=== PATIENT | female | born 1940 | race Hispanic/Latino ===

== ENCOUNTER 2018-10-23 20:35 | Emergency (ER) | payer MEDICARE ==
--- NOTE | 2018-10-23 22:35 | EDPHYS ---
Physician Documentation [facility] Name: Catherine Chahal Age: 78 yrs Sex: Female : 1940 Arrival Date: 10/23/2018 Time: 20:40 Bed 13 Private MD: Shemar White E ED Physician Brennen Rader HPI: 10/24 02:51 This 78 yrs old Female presents to ER via Ambulatory with complaints of Finger tw4 Injury - turned black. 02:51 The patient or guardian reports swelling. The patient or guardian reports eechymosis. tw4 The complaints affect the palmar aspect of distal phalanx of right little finger. Context: The problem was sustained at home, resulted from an unknown cause. Onset: The symptoms/episode began/occurred yesterday. Modifying factors: The symptoms are alleviated by nothing, the symptoms are aggravated by nothing. Severity of symptoms: At their worst the symptoms were moderate, in the emergency department the symptoms are unchanged. Historical: - Allergies: 10/23 20:50 Codeine; ed1 20:50 Iodine; ed1 20:50 Sulfa (Sulfonamide Antibiotics); ed1 - Home Meds: 20:50 metformin 500 mg Oral tab 1 tab 2 times per day [Active]; amlodipine 10 mg tab 1 tab ed1 once daily [Active]; naproxen 500 mg Oral tab 1 tab 2 times per day [Active]; tramadol 50 mg Oral tab as needed [Active]; - PMHx: 20:50 Diabetes - NIDDM; Hypertension; ed1 - PSHx: 20:50 Knee surgery; cataract Sx; Hysterectomy; Cholecystectomy; Tonsillectomy; breast Sx; ed1 - Immunization history:: Adult Immunizations up to date. - Social history:: Smoking status: Patient/guardian denies using tobacco. - Ebola Screening: : Patient negative for fever greater than or equal to 101.5 degrees Fahrenheit, and additional compatible Ebola Virus Disease symptoms Patient denies exposure to infectious person Patient denies travel to an Ebola-affected area in the 21 days before illness onset No symptoms or risks identified at this time. ROS: 10/24 02:51 Constitutional: Negative for fever, chills, and weight loss, Eyes: Negative for injury, tw4 pain, redness, and discharge, Cardiovascular: Negative for chest pain, palpitations, and edema, Respiratory: Negative for shortness of breath, cough, wheezing, and pleuritic chest pain, Abdomen/GI: Negative for abdominal pain, nausea, vomiting, diarrhea, and constipation. MS/extremity: Positive for ecchymosis, swelling, Negative for injury or acute deformity, abrasion, bite, contusion, decreased range of motion, deformity, erythema, laceration, pain, paresthesias, puncture, rash. Exam: 02:51 Constitutional: This is a well developed, well nourished patient who is awake, alert, tw4 and in no acute distress. Head/Face: Normocephalic, atraumatic. Chest/axilla: Normal chest wall appearance and motion. Nontender with no deformity. No lesions are appreciated. Cardiovascular: Regular rate and rhythm with a normal S1 and S2. No gallops, murmurs, or rubs. Normal PMI, no JVD. No pulse deficits. Respiratory: Lungs have equal breath sounds bilaterally, clear to auscultation and percussion. No rales, rhonchi or wheezes noted. No increased work of breathing, no retractions or nasal flaring. Abdomen/GI: Soft, non-tender, with normal bowel sounds. No distension or tympany. No guarding or rebound. No evidence of tenderness throughout. 02:51 Musculoskeletal/extremity: Extremities: noted in the palmar aspect of distal phalanx of right little finger: ecchymosis, swelling, abrasion, bite, contusion, decreased ROM, deformity, ROM: limited passive range of motion, "trigger finger". Vital Signs: 10/23 20:50 BP 131 / 65; Pulse 81; Resp 18; Temp 97.5(TE); Pulse Ox 96% on R/A; Weight 76.2 kg; ed1 Height 5 ft. 3 in. (160.02 cm); Pain 0/10; 22:15 BP 143 / 70; Pulse 68; Resp 16; Pulse Ox 100% on R/A; jb4 20:50 Body Mass Index 29.76 (76.20 kg, 160.02 cm) ed1 MDM: 21:01 Patient medically screened. tw4 10/24 02:51 Differential diagnosis: contusion, abrasion. Data reviewed: vital signs, nurses notes. tw4 Data interpreted: Pulse oximetry: Interpretation: normal. Counseling: I had a detailed discussion with the patient and/or guardian regarding: the historical points, exam findings, and any diagnostic results supporting the discharge/admit diagnosis, radiology results. Special discussion: I discussed with the patient/guardian in detail that at this point there is no indication for admission to the hospital. It is understood, however, that if the symptoms persist or worsen the patient needs to return immediately for re-evaluation. 10/23 21:39 Order name: Hand Right 2 View XRAY tw4 Administered Medications: No medications were administered Disposition: 10/23/18 22:34 Discharged to Home. Impression: Trigger finger, right little finger. - Condition is Stable. - Discharge Instructions: Trigger Finger. - Medication Reconciliation Form, Thank You Letter, Antibiotic Education, Prescription Opioid Use form. - Follow up: Shemar White MD; When: Upon discharge from the Emergency Department; Reason: If symptoms return, Recheck today's complaints, Continuance of care. - Problem is new. - Symptoms have improved. Signatures: Dispatcher [employer] EDMS Neha De León RN RN ed1 Deyvi Osorio RN RN jb4 Brennen Rader MD MD tw4 Corrections: (The following items were deleted from the chart) 10/23 23:02 22:34 10/23/2018 22:34 Discharged to Home. Impression: Trigger finger, right little jb4 finger. Condition is Stable. Forms are Medication Reconciliation Form, Thank You Letter, Antibiotic Education, Prescription Opioid Use. Follow up: Shemar White; When: Upon discharge from the Emergency Department; Reason: If symptoms return, Recheck today's complaints, Continuance of care. Problem is new. Symptoms have improved. tw4
--- NOTE | 2018-10-23 22:35 | ER ---
Nurse's Notes [facility] Name: Catherine Chahal Age: 78 yrs Sex: Female : 1940 Arrival Date: 10/23/2018 Time: 20:40 Bed 13 Private MD: Shemar White E Diagnosis: Trigger finger, right little finger Presentation: 10/23 20:46 Presenting complaint: Patient states: I don't know what happened I was working with ed1 some scissors then it just started to swell up. Transition of care: patient was not received from another setting of care. Onset of symptoms was October 23, 2018. Risk Assessment: Do you want to hurt yourself or someone else? Patient reports no desire to harm self or others. Initial Sepsis Screen: Does the patient meet any 2 criteria? No. Patient's initial sepsis screen is negative. Does the patient have a suspected source of infection? No. Patient's initial sepsis screen is negative. Care prior to arrival: None. 20:46 Method Of Arrival: Ambulatory ed1 20:46 Acuity: NESTOR 4 ed1 Triage Assessment: 20:50 General: Appears in no apparent distress. Behavior is calm, cooperative. Pain: Denies ed1 pain. Musculoskeletal: Swelling present in right pinky. Injury Description: N/A. Historical: - Allergies: 20:50 Codeine; ed1 20:50 Iodine; ed1 20:50 Sulfa (Sulfonamide Antibiotics); ed1 - Home Meds: 20:50 metformin 500 mg Oral tab 1 tab 2 times per day [Active]; amlodipine 10 mg tab 1 tab ed1 once daily [Active]; naproxen 500 mg Oral tab 1 tab 2 times per day [Active]; tramadol 50 mg Oral tab as needed [Active]; - PMHx: 20:50 Diabetes - NIDDM; Hypertension; ed1 - PSHx: 20:50 Knee surgery; cataract Sx; Hysterectomy; Cholecystectomy; Tonsillectomy; breast Sx; ed1 - Immunization history:: Adult Immunizations up to date. - Social history:: Smoking status: Patient/guardian denies using tobacco. - Ebola Screening: : Patient negative for fever greater than or equal to 101.5 degrees Fahrenheit, and additional compatible Ebola Virus Disease symptoms Patient denies exposure to infectious person Patient denies travel to an Ebola-affected area in the 21 days before illness onset No symptoms or risks identified at this time. Screenin:00 Abuse screen: Denies threats or abuse. Nutritional screening: No deficits noted. jb4 Tuberculosis screening: No symptoms or risk factors identified. Fall Risk None identified. Assessment: 21:00 General: Appears in no apparent distress. comfortable, Behavior is calm, cooperative, jb4 appropriate for age, PT reports swelling and bruising to the right pinky. Denies any form of injury to the area. "It just started swelling and turning black like a bruise.".. Pain: Denies pain. Neuro: Level of Consciousness is awake, alert, obeys commands, Oriented to person, place, time, situation. Cardiovascular: Patient's skin is warm and dry. Respiratory: Airway is patent Respiratory effort is even, unlabored, Respiratory pattern is regular, symmetrical. GI: No signs and/or symptoms were reported involving the gastrointestinal system. : No signs and/or symptoms were reported regarding the genitourinary system. EENT: No signs and/or symptoms were reported regarding the EENT system. Derm: Skin is intact, Skin is pink, warm \\T\\ dry. Musculoskeletal: Circulation, motion, and sensation intact. 22:28 Reassessment: Patient appears in no apparent distress at this time. Patient and/or jb4 family updated on plan of care and expected duration. Pain level reassessed. Patient is alert, oriented x 3, equal unlabored respirations, skin warm/dry/pink. 22:45 Reassessment: Pt discharged home with family, ambulated with steady gate, no IV access jb4 this visit. Vital Signs: 20:50 BP 131 / 65; Pulse 81; Resp 18; Temp 97.5(TE); Pulse Ox 96% on R/A; Weight 76.2 kg; ed1 Height 5 ft. 3 in. (160.02 cm); Pain 0/10; 22:15 BP 143 / 70; Pulse 68; Resp 16; Pulse Ox 100% on R/A; jb4 20:50 Body Mass Index 29.76 (76.20 kg, 160.02 cm) ed1 ED Course: 20:40 Patient arrived in ED. am2 20:40 Shemar White MD is Private Physician. am2 20:46 Triage completed. ed1 20:50 Arm band placed on right wrist. ed1 21:00 Patient has correct armband on for positive identification. Bed in low position. Call jb4 light in reach. Side rails up X 1. Pulse ox on. NIBP on. 21:01 Brennen Rader MD is Attending Physician. tw4 21:05 Deyvi Osorio, RN is Primary Nurse. jb4 22:07 Hand Right 2 View XRAY In Process Unspecified. EDMS 22:33 Shemar White MD is Referral Physician. tw4 22:45 No provider procedures requiring assistance completed. Patient did not have IV access jb4 during this emergency room visit. Administered Medications: No medications were administered Outcome: 22:34 Discharge ordered by MD. tw4 22:45 Discharged to home ambulatory, with family. jb4 22:45 Condition: stable 22:45 Discharge instructions given to patient, family, Instructed on discharge instructions, follow up and referral plans. Demonstrated understanding of instructions, follow-up care. 23:02 Patient left the ED. jb4 Signatures: Dispatcher [employer] EDNeha Snider RN RN ed1 Deyvi Osorio, BRANDON RN jb4 Petty Gonzalez am2 Brennen Rader MD MD tw4
[2018-10-23 23:19] VITALS: TEMP 97.5
[2018-10-23 23:21] VITALS: BP 143/70; O2SAT 100
--- NOTE | 2018-10-24 08:09 | RAD REPORT ---
EXAM DESCRIPTION: RAD - Hand Right 2 View - 10/23/2018 10:12 pm CLINICAL HISTORY: Right hand pain FINDINGS: No fracture or dislocation is seen. A calcification triangular fibrocartilage. Osteoporosis. Mild osteoarthritis involving DIP and PIP edison ints
== END 2018-10-23 23:02 | disposition home or self-care (01) ==
LOC: ER 20:35
DX: M65.351 Trigger finger, right little finger (principal); I10 Essential (primary) hypertension; E11.9 Type 2 diabetes mellitus without complications; Z88.2 Allergy status to sulfonamides; Z88.5 Allergy status to narcotic agent; Z91.048 Other nonmedicinal substance allergy status
CPT/HCPCS: 99283

== ENCOUNTER 2019-08-20 14:18 | Emergency (ER) | payer MEDICARE, OTHER, SELFPAY ==
--- NOTE | 2019-08-20 14:56 | EDPHYS ---
Physician Documentation [facility] Name: Catherine Chahal Age: 78 yrs Sex: Female : 1940 Arrival Date: 08/20/2019 Time: 14:21 Bed 28 Private MD: ED Physician Chelsea Wilburn HPI: 08/19 15:03 This 78 yrs old Female presents to ER via Ambulatory with complaints of Skin snw Sore(s). 15:03 Onset: The symptoms/episode began/occurred suddenly. Associated signs and symptoms: snw Pertinent positives: itching. Modifying factors: The patient symptoms are alleviated by nothing, the patient symptoms are aggravated by nothing. The patient has not experienced similar symptoms in the past. It is unknown whether or not the patient has recently seen a physician. negative for fever, malaise. Historical: - Allergies: 15:00 Codeine; ls4 15:00 Iodine; ls4 15:00 Sulfa (Sulfonamide Antibiotics); ls4 - PMHx: 15:00 Diabetes - NIDDM; Hypertension; ls4 - PSHx: 15:00 Knee surgery; cataract Sx; Hysterectomy; Cholecystectomy; Tonsillectomy; breast Sx; ls4 - Immunization history:: Adult Immunizations up to date, Pneumococcal vaccine is up to date, Flu vaccine is up to date. - Social history:: Smoking status: Patient denies any tobacco usage or history of. ROS: 15:02 Constitutional: Negative for fever, chills, and weight loss, Eyes: Negative for injury, snw pain, redness, and discharge, ENT: Negative for injury, pain, and discharge, Neck: Negative for injury, pain, and swelling, Cardiovascular: Negative for chest pain, palpitations, and edema, Respiratory: Negative for shortness of breath, cough, wheezing, and pleuritic chest pain, Abdomen/GI: Negative for abdominal pain, nausea, vomiting, diarrhea, and constipation, Back: Negative for injury and pain, : Negative for injury, bleeding, discharge, and swelling, MS/Extremity: Negative for injury and deformity, Neuro: Negative for headache, weakness, numbness, tingling, and seizure, Psych: Negative for depression, anxiety, suicide ideation, homicidal ideation, and hallucinations. 15:02 Skin: Positive for cellulitis, of the left lower quadrant, itching. Exam: 15:01 Constitutional: This is a well developed, well nourished patient who is awake, alert, snw and in no acute distress. Head/Face: Normocephalic, atraumatic. Eyes: Pupils equal round and reactive to light, extra-ocular motions intact. Lids and lashes normal. Conjunctiva and sclera are non-icteric and not injected. Cornea within normal limits. Periorbital areas with no swelling, redness, or edema. ENT: Nares patent. No nasal discharge, no septal abnormalities noted. Tympanic membranes are normal and external auditory canals are clear. Oropharynx with no redness, swelling, or masses, exudates, or evidence of obstruction, uvula midline. Mucous membranes moist. Neck: Trachea midline, no thyromegaly or masses palpated, and no cervical lymphadenopathy. Supple, full range of motion without nuchal rigidity, or vertebral point tenderness. No Meningismus. Chest/axilla: Normal chest wall appearance and motion. Nontender with no deformity. No lesions are appreciated. Cardiovascular: Regular rate and rhythm with a normal S1 and S2. No gallops, murmurs, or rubs. Normal PMI, no JVD. No pulse deficits. Respiratory: Lungs have equal breath sounds bilaterally, clear to auscultation and percussion. No rales, rhonchi or wheezes noted. No increased work of breathing, no retractions or nasal flaring. Abdomen/GI: Soft, non-tender, with normal bowel sounds. No distension or tympany. No guarding or rebound. No evidence of tenderness throughout. Back: No spinal tenderness. No costovertebral tenderness. Full range of motion. MS/ Extremity: Pulses equal, no cyanosis. Neurovascular intact. Full, normal range of motion. Neuro: Awake and alert, GCS 15, oriented to person, place, time, and situation. Cranial nerves II-XII grossly intact. Motor strength 5/5 in all extremities. Sensory grossly intact. Cerebellar exam normal. Normal gait. Psych: Awake, alert, with orientation to person, place and time. Behavior, mood, and affect are within normal limits. 15:01 Skin: Appearance: normal except for affected area, abscess, that is small, of the left lower quadrant, with fluctuance, cellulitis, that is mild, well demarcated, on the left lower quadrant. Vital Signs: 14:24 BP 154 / 68; Pulse 93; Resp 16 S; Temp 98(TE); Pulse Ox 98% on R/A; Weight 74.84 kg ca1 (R); Height 5 ft. 3 in. (160.02 cm) (R); 14:24 Body Mass Index 29.23 (74.84 kg, 160.02 cm) ca1 MDM: 14:29 Patient medically screened. snw 14:56 Data reviewed: vital signs, nurses notes. Data interpreted: Pulse oximetry: on room air snw is 98 %. Interpretation: normal. Counseling: I had a detailed discussion with the patient and/or guardian regarding: the historical points, exam findings, and any diagnostic results supporting the discharge/admit diagnosis, the presence of at least one elevated blood pressure reading (>120/80) during this emergency department visit, the need for outpatient follow up, to return to the emergency department if symptoms worsen or persist or if there are any questions or concerns that arise at home. Special discussion: I have referred the patient to see his PCP for further evaluation of high blood pressure. I discussed in detail with the patient the higher chance of wound infection based on his presenting history. Based on the history and exam findings, there is no indication for further emergent testing or inpatient evaluation. I discussed with the patient/guardian the need to see the primary care provider for further evaluation of the symptoms. Administered Medications: No medications were administered Disposition: 08/20/19 14:55 Discharged to Home. Impression: Cutaneous abscess of other sites, Cellulitis, unspecified. - Condition is Stable. - Discharge Instructions: Cellulitis, Adult, Skin Abscess, [id number]. - Prescriptions for Bactroban 2 % Topical Ointment - Apply to affected area 1 application by TOPICAL route every 12 hours; 15 gram. Doxycycline Hyclate 100 mg Oral Tablet - take 1 tablet by ORAL route every 12 hours; 20 tablet. - Medication Reconciliation Form, Thank You Letter, Antibiotic Education, Prescription Opioid Use form. - Follow up: Emergency Department; When: As needed; Reason: Worsening of condition. Follow up: Private Physician; When: 2 - 3 days; Reason: Recheck today's complaints, Continuance of care, Re-evaluation by your physician. Addendum: 08/26/2019 01:28 Co-signature as Attending Physician, Chelsea castillo a2 Signatures: Samantha Parish, JANITORIAL SERVICES SUPERVISOR-C JANITORIAL SERVICES SUPERVISOR-Csnw Chelsea Wilburn MD MD ma2 Carmen Chavarria, RN RN ls4 Leilani Salmeron RN RN ca1 Corrections: (The following items were deleted from the chart) 08/19 15:10 14:55 08/20/2019 14:55 Discharged to Home. Impression: Cutaneous abscess of other ls4 sites; Cellulitis, unspecified. Condition is Stable. Forms are Medication Reconciliation Form, Thank You Letter, Antibiotic Education, Prescription Opioid Use. Follow up: Emergency Department; When: As needed; Reason: Worsening of condition. Follow up: Private Physician; When: 2 - 3 days; Reason: Recheck today's complaints, Continuance of care, Re-evaluation by your physician. snw
--- NOTE | 2019-08-20 14:56 | ER ---
Nurse's Notes [facility] Name: Catherine Chahal Age: 78 yrs Sex: Female : 1940 Arrival Date: 08/20/2019 Time: 14:21 Bed 28 Private MD: Diagnosis: Cutaneous abscess of other sites;Cellulitis, unspecified Presentation: 08/19 14:24 Chief complaint: Patient states: Reddish lump on the L lower abdomen started today. ca1 Denies pain, reports itchiness on the area. Coronavirus screen: The patient has NOT traveled to [place] in the past 14 days. The patient has NOT had contact with known and/or suspected case of Coronavirus. Ebola Screen: Patient negative for fever greater than or equal to 101.5 degrees Fahrenheit, and additional compatible Ebola Virus Disease symptoms Patient denies exposure to infectious person. Patient denies travel to an Ebola-affected area in the 21 days before illness onset. No symptoms or risks identified at this time. Initial Sepsis Screen: Does the patient meet any 2 criteria? No. Patient's initial sepsis screen is negative. Does the patient have a suspected source of infection? No. Patient's initial sepsis screen is negative. Risk Assessment: Do you want to hurt yourself or someone else? Patient reports no desire to harm self or others. Onset of symptoms was August 20, 2019. 14:24 Method Of Arrival: Ambulatory ca1 14:24 Acuity: NESTOR 4 ca1 Triage Assessment: 14:42 General: Appears in no apparent distress. Behavior is calm, cooperative. Pain: Denies ls4 pain. Neuro: No deficits noted. Cardiovascular: No deficits noted. Respiratory: No deficits noted. GI: No deficits noted. : No deficits noted. Musculoskeletal: No deficits noted. 14:52 Derm: Abscess located on left lower quadrant Reports itching, Denies burning, pain, ls4 peeling, tingling. Historical: - Allergies: 15:00 Codeine; ls4 15:00 Iodine; ls4 15:00 Sulfa (Sulfonamide Antibiotics); ls4 - PMHx: 15:00 Diabetes - NIDDM; Hypertension; ls4 - PSHx: 15:00 Knee surgery; cataract Sx; Hysterectomy; Cholecystectomy; Tonsillectomy; breast Sx; ls4 - Immunization history:: Adult Immunizations up to date, Pneumococcal vaccine is up to date, Flu vaccine is up to date. - Social history:: Smoking status: Patient denies any tobacco usage or history of. Screenin:57 Abuse screen: Denies threats or abuse. Denies injuries from another. Nutritional ls4 screening: No deficits noted. Tuberculosis screening: No symptoms or risk factors identified. Fall Risk None identified. Assessment: 14:53 General: SEE TRIAGE NOTE. ls4 Vital Signs: 14:24 BP 154 / 68; Pulse 93; Resp 16 S; Temp 98(TE); Pulse Ox 98% on R/A; Weight 74.84 kg ca1 (R); Height 5 ft. 3 in. (160.02 cm) (R); 14:24 Body Mass Index 29.23 (74.84 kg, 160.02 cm) ca1 ED Course: 14:21 Patient arrived in ED. mr 14:24 Arm band placed on right wrist. ca1 14:27 Triage completed. ca1 14:29 Samantha Parish FNP-C is PHCP. snw 14:29 Chelsea Wilburn MD is Attending Physician. snw 14:40 Carmen Chavarria, RN is Primary Nurse. ls4 14:57 Patient has correct armband on for positive identification. Bed in low position. Call ls4 light in reach. Side rails up X 1. Pulse ox on. NIBP on. Verbal reassurance given. 14:57 No provider procedures requiring assistance completed. Patient did not have IV access ls4 during this emergency room visit. Administered Medications: No medications were administered Outcome: 14:55 Discharge ordered by . snw 15:00 Discharged to home ambulatory. ls4 15:00 Condition: stable 15:00 Discharge instructions given to patient, Instructed on discharge instructions, follow up and referral plans. medication usage, safety practices, wound care, Demonstrated understanding of instructions, follow-up care, medications. 15:10 Patient left the ED. ls4 Signatures: Samantha Parish FNP-C FNP-Adam Catherine Marin Carmen Chavarria, RN RN ls4 Leilani Salmeron RN RN ca1 Corrections: (The following items were deleted from the chart) 14:53 14:42 Derm: No deficits noted. ls4 ls4
[2019-08-20 16:35] VITALS: BP 154/68; TEMP 98; O2SAT 98
== END 2019-08-20 15:10 | disposition home or self-care (01) ==
LOC: ER 14:18
DX: L03.311 Cellulitis of abdominal wall (principal); I10 Essential (primary) hypertension; Z88.2 Allergy status to sulfonamides; Z88.5 Allergy status to narcotic agent; Z91.048 Other nonmedicinal substance allergy status
CPT/HCPCS: 99283

== ENCOUNTER 2020-06-09 10:21 | Day surgery (SDC) | payer OTHER ==
--- NOTE | 2020-06-05 13:33 | RAD REPORT ---
EXAM DESCRIPTION: Alberto Pa And Lat (2 Views)06/05/2020 1:27 pm CLINICAL HISTORY: Preop for abdominal angiogram/hypertension COMPARISON: 2014 FINDINGS: The lungs appear clear of acute infiltrate. The heart is mildly enlarged. Upper lobe vessels are prominent indicative of pulmonary venous hypertension
[2020-06-05 14:07] LABS: Absolute Lymphocytes (CBC) 1.9 K/uL (0.7-4.9); Basophils % 0.9 % (0-1.3); Hematocrit 42.1 % (36.0-45.0); Lymphocytes % 21.7 % (15.3-44.8); RBC Red Blood Cell Count 4.46 M/uL (3.86-4.86)
[2020-06-05 14:10] LABS: Protime INR 0.88
[2020-06-09] MEDS ORDERED: NA CHLORIDE 0.9% 500 ML ONE (12:40)
[2020-06-09] MEDS ORDERED: HEPA 1000U/500MLS 2,000 UNIT/1,000 ML BAG IV ONE (13:18)
[2020-06-09] MEDS ORDERED: HEPARIN 5000 UNIT/ML 1 ML VIAL ONE (13:27)
[2020-06-09] MEDS ORDERED: FENTANYL CITR 100 MCG/2 ML ONE (13:27)
[2020-06-09] MEDS ORDERED: MIDAZOLAM HCL 2 MG/2 ML INJ ONE ×2 (13:27→14:18)
[2020-06-09] MEDS ORDERED: DIPHENHYDRAMINE 50 MG/ML VIAL ONE (13:28)
[2020-06-09] MEDS ORDERED: METHYLPREDNISOLONE 125 MG INJ ONE (13:28)
[2020-06-09 16:33] VITALS: TEMP 97.7
[2020-06-09 17:56] VITALS: O2SAT 97
[2020-06-09 20:12] VITALS: BP 187/74
--- NOTE | 2020-06-14 11:29 | OP ---
Date of Procedure: 06/09/2020 Surgeon: Hamlet Brush MD Public Administration Teacher: Bridger Teresa. Procedures Performed: Abdominal angiogram with runoff. Indication: Claudication and positive arterial Doppler. Also hypertension. History Of Present Illness: Ms. Chahal is an 79-year-old [place] woman, who was admitted to the hospital as an outpatient for the following procedure, abdominal angiogram with runoff, bilateral re nal artery interpretation. Procedure In Detail: She was prepped and draped in the routine sterile fashion. A 6-Micronesian sheath w as introduced in the right common femoral artery after sedation and after 10 cc of Xylocaine using Se ldinger technique. A pigtail catheter was introduced and positioned above the renal. Abdominal wisam ogram with runoff was done. She was found to have normal iliacs, normal distal aorta, normal right S FA. Her left SFA had an 80% stenosis above the knee. She was also found to have bilateral 90% renal stenosis on the left than the right. The patient tolerated the procedure well. There were no compl ications. Blood loss was 5 mL. Total conscious sedation was 45 minutes. Final Diagnoses: Severe superficial femoral artery stenosis, severe bilateral renal artery stenosis, peripheral vascular disease, and hypertension. The patient will be going home after 2 hours of bedrest and after StarClose at the right groin. I wi ll set her up for a staged procedure for left SFA, left renal on Monday, and then the right for the r ight renal another day. The patient and family understand the risk and the benefits of the upcoming procedure and they agreed to proceed. She will go home in 2 ho urs today. LEONARDO/CLIF Voice ID: [id number] Report ID: [id number]
== END 2020-06-09 20:18 | disposition home or self-care (01) ==
LOC: CCL 10:21
DX: I70.212 Atherosclerosis of native arteries of extremities with intermittent claudication, left leg (principal); I70.1 Atherosclerosis of renal artery; I65.21 Occlusion and stenosis of right carotid artery; E11.40 Type 2 diabetes mellitus with diabetic neuropathy, unspecified; I11.9 Hypertensive heart disease without heart failure; E11.51 Type 2 diabetes mellitus with diabetic peripheral angiopathy without gangrene; Z82.49 Family history of ischemic heart disease and other diseases of the circulatory system
CPT/HCPCS: 93005; 85025; 80048; 36415; 85610; 82947; 85730; 71046; 36200; 75630; C1893; J2250 ×2; J3010; J7040; J1644; J2930; J1200

== ENCOUNTER 2020-06-16 08:24 | Day surgery (SDC) | payer OTHER ==
[2020-06-16] MEDS ORDERED: DIPHENHYDRAMINE 50 MG/ML VIAL ONE (08:51)
[2020-06-16] MEDS ORDERED: METHYLPREDNISOLONE 125 MG INJ ONE (08:51)
[2020-06-16] MEDS ORDERED: MIDAZOLAM HCL 2 MG/2 ML INJ ONE (08:51)
[2020-06-16] MEDS ORDERED: FENTANYL CITR 100 MCG/2 ML ONE ×2 (08:53→12:54)
[2020-06-16] MEDS ORDERED: HEPARIN 5000 UNIT/ML 1 ML VIAL ONE (08:53)
[2020-06-16] MEDS ORDERED: NA CHLORIDE 0.9% 500 ML ONE (09:09)
[2020-06-16] MEDS ORDERED: HEPA 1000U/500MLS 1,000 UNIT/500 ML BAG IV ONE (09:55)
[2020-06-16] MEDS ORDERED: LIDOCAINE 1% MPF 30 ML VIAL ONE (10:20)
[2020-06-16] MEDS ORDERED: NITROGLYCERIN 100 MCG/ML SYR (for cath lab use only) IV ONE (10:52)
[2020-06-16] MEDS ORDERED: PRASUGREL (EFFIENT) 10 MG TAB ONE (11:17)
--- NOTE | 2020-06-16 12:48 | OP ---
Surgeon: Hamlet Brush MD Services Clerk: Justin Prasad. Procedure: Selective SFA angiogram with a distal primary stent of the left SFA. Indication: Peripheral arterial disease. Ms. Chahal is an 79-year-old woman with hypertension, dyslip idemia, peripheral arterial disease, renal artery stenosis. Angiography that was done about a week a go showed stenosis in the left SFA. She has claudication, positive arterial Doppler. We incidentall y found bilateral renal artery stenosis. She was very hypertensive. Procedure In Detail: She was brought today for a staged procedure SFA. She will come back to have h er renals done later. She was prepped and draped in the routine sterile fashion. Given Versed for s edation. A 6-Andorran sheath was introduced in the right common femoral artery successfully. Angiogra phy there was normal, StarClose failed, pressure was used to obtain hemostasis after the sheath was p ulled. I used a HERNANDEZ guide catheter to go up and over the iliac bifurcation from the right to the le ft. A Glidewire was used to cross the lesion successfully. A 6 x 29 stent was placed at 14 atmosphe re. Initially, the lesion itself showed 0% residual, however, distal to the lesion there was a disse ction. We decided to give intravascular nitroglycerin up to 300 mcg with some resolution, but the di ssection remained. We decided to put another stent which was a 6 x 39, which was placed at 7 atmosph eres with 0% residual with an excellent distal flow. A Wholey wire was 0.035 wire. There were no co mplications other than the dissection which was treated successfully. Blood loss was 5 mL. Total co nscious sedation was 45 minutes. The patient did receive 60 mg of Effient. She will go home on stat in, Plavix, aspirin, metformin was restarted because her last blood sugar was elevated. Postoperative Diagnosis: Peripheral artery disease, status post successful primary stent of distal S FA. She will be in the hospital for 4-6 hours for bedrest after which she will go home. I will see her i n the office in the next 2 weeks, where we will set up for renal stents related. LEONARDO/CLIF Voice ID: [id number] Report ID: [id number]
--- NOTE | 2020-06-16 14:41 | RAD REPORT ---
EXAM DESCRIPTION: CT - Abdomen Pelvis Wo Contrast - 06/16/2020 2:23 pm CLINICAL HISTORY: Abdominal pain /hematoma COMPARISON: None TECHNIQUE: Computed axial tomography of the abdomen and pelvis was obtained. IV and oral contrast we re not requested. All CT scans are performed using dose optimization technique as appropriate and may include automated exposure control or mA/KV adjustment according to patient size. FINDINGS: The evaluation of solid organs, vessels and bowel is limited secondary to the lack of con trast administration. The liver, spleen, pancreas, adrenals and kidneys appear grossly normal. The appendix is normal. Diverticula stem from the colon without evidence of diverticulitis. 10 x 5 centimeter ill-defined area hematoma is present within the lower right groin extending inferio rly within the anterior right thigh. There is no retroperitoneal hematoma IMPRESSION: 10 x 5 centimeter ill-defined hematoma within the lower right flank extending into the anterior right thigh. No retroperitoneal hematoma
[2020-06-16] MEDS ORDERED: NA CHLORIDE 0.9% 1,000 ML ONE (16:36)
[2020-06-16] MEDS ORDERED: ACETAMINOPHEN 325 MG TABLET PO PRN (16:42)
[2020-06-16] MEDS ORDERED: NITROGLYCERIN 0.4 MG/TAB SL PRN (16:42)
[2020-06-16] MEDS ORDERED: NA CHLORIDE 0.9% 1,000 ML IV SCH (17:00)
[2020-06-16 17:18] VITALS: BMI 31.6
[2020-06-17 05:03] VITALS: O2SAT 97
[2020-06-17] MEDS ORDERED: MONTELUKAST 10 MG TAB PO SCH (09:00)
[2020-06-17] MEDS ORDERED: LOSARTAN POTASSIUM 50 MG TABLET PO SCH (09:00)
[2020-06-17] MEDS ORDERED: CLOPIDOGREL 75 MG TABLET PO SCH (09:00)
[2020-06-17 09:04] VITALS: BP 176/75; TEMP 97.2
--- NOTE | 2020-06-17 09:35 | RAD REPORT ---
EXAM DESCRIPTION: US - Extremity Nonvascular Complete - 06/17/2020 7:37 am CLINICAL HISTORY: Hematoma COMPARISON: CT June 16, 2020 FINDINGS: No pseudo aneurysm/AVM. The hematoma within the inferior right groin extending inferiorly has diminished in size and is ill-d efined IMPRESSION: The hematoma within the inferior right groin extending inferiorly has diminished in size and is ill-defined
--- NOTE | 2020-06-17 11:29 | SS ---
Reason For Admission: Right groin hematoma following a left SFA stent. History Of Present Illness: Ms. Chahal is an 79-year-old woman who has a known history of peripheral a rterial disease and bilateral renal artery stenosis. She also has a history of severe hypertension a nd asthma. She was brought to the cardiac cath lab technologist on 06/16/2020 and underwent left SFA stent, which was suc cessful. After the procedure was done, pressure was held on the right groin for hemostasis, but she developed a hematoma nevertheless and a CT scan that was ordered showed no retroperitoneal hematoma, but the hematoma was 10 x 5 cm within the lower right flank extending into the anterior right thigh. We decided to observe her overnight. She underwent another Doppler in the morning on 06/17/2020 deny wed the hematoma was resolving without any pseudoaneurysm or AV malformation. The patient was sent h ome with the instruction to be on aspirin, Plavix, losartan. I will see her in the office in the nex t week. She will need a left and right renal stent eventually. She will also need eventually her he art evaluated and her carotid evaluated as well. Past Medical History: As stated above. Allergies: INCLUDE CODEINE, IODINE, AND SULFA. Review of Systems: Negative. Social History: Negative. Family History: Noncontributory. Medications: Listed earlier. Physical Examination On Admission: Vital Signs: Stable, afebrile. Blood pressure was 150/70 in the cardiac cath lab technologist, but it was 200 on the floor before she went into the cardiac cath lab technologist. HEENT: Negative. Neck: Supple without bruit. Chest: Clear. Cardiac: Revealed an S4 gallops. Abdomen: Benign. Extremities: Revealed no clubbing, cyanosis, or edema. Diagnostic Data: All within normal limit. Her EKG was normal. X-ray was normal. Laboratory evalua tion showed a glucose of 239, otherwise everything else was normal. Discharge Instruction And Impression: She has hypertension; renal artery stenosis requiring stents i n the future; peripheral arterial disease, status post left superficial femoral artery stent; hematom a in the groin, no retroperitoneal hematoma, no pseudoaneurysm. The patient will go home today and f yordy up in my office in the next week. She will be on aspirin, Plavix, and losartan. We will plan cardiac workup, carotid workup, renal artery stents down the road. She should be at bedrest at home for another day with minimal activities. Low-fat, low-cholesterol diet. NB/MODL Voice ID: [id number] Report ID: [id number]
== END 2020-06-17 12:35 | disposition home or self-care (01) ==
LOC: CCL 08:24 → 2ND 16:02 → CCL 06-17 12:35
DX: I70.212 Atherosclerosis of native arteries of extremities with intermittent claudication, left leg (principal); I70.1 Atherosclerosis of renal artery; L76.32 Postprocedural hematoma of skin and subcutaneous tissue following other procedure; Y84.8 Other medical procedures as the cause of abnormal reaction of the patient, or of later complication, without mention of misadventure at the time of the procedure; I65.21 Occlusion and stenosis of right carotid artery; I10 Essential (primary) hypertension; I51.7 Cardiomegaly; J45.909 Unspecified asthma, uncomplicated; E78.5 Hyperlipidemia, unspecified; E11.40 Type 2 diabetes mellitus with diabetic neuropathy, unspecified; Z88.2 Allergy status to sulfonamides; Z88.6 Allergy status to analgesic agent; Z91.041 Radiographic dye allergy status; Z20.828 Contact with and (suspected) exposure to other viral communicable diseases; Z82.49 Family history of ischemic heart disease and other diseases of the circulatory system
CPT/HCPCS: 82947 ×2; 85347 ×3; 74176; 36200; 37224; 76881; C1887 ×2; C1769 ×2; C1725; J1644 ×2; J2250; J3010 ×2; J7040; J7030; J2930; J1200; U0002

== ENCOUNTER 2020-06-29 07:14 | Day surgery (SDC) | payer OTHER ==
--- NOTE | 2020-06-25 13:20 | RAD REPORT ---
EXAM DESCRIPTION: Alberto Dumont And Lat (2 Views)06/25/2020 1:09 pm CLINICAL HISTORY: Preop/hypertension COMPARISON: May 2020 FINDINGS: The lungs appear clear of acute infiltrate. The heart is mildly enlarged.
[2020-06-25 13:57] LABS: Absolute Lymphocytes (CBC) 2.2 K/uL (0.7-4.9); Basophils % 0.8 % (0-1.3); Hematocrit 38.5 % (36.0-45.0); Lymphocytes % 23.3 % (15.3-44.8); MPV 8.9 fL (7.6-11.3); RBC Red Blood Cell Count 4.06 M/uL (3.86-4.86)
[2020-06-25 13:58] LABS: Protime INR 0.86
[2020-06-25 14:11] LABS: Potassium 3.9 mmol/L (3.5-5.1)
--- NOTE | 2020-06-26 22:35 | EKG ---
Test Date: 2020-06-25 Test Time: 13:13:44 Windows Application Developer: CANDELARIO MEASUREMENT RESULTS: Intervals: Rate: 71 WV: 150 QRSD: 88 QT: 388 QTc: 421 [place]: P: 56 WV: 150 QRS: 48 T: -76 INTERPRETIVE STATEMENTS: Normal sinus rhythm ST & T wave abnormality, consider inferior ischemia ST & T wave abnormality, consider anterolateral ischemia Abnormal ECG Compared to ECG 06/05/2020 13:29:33 Possible ischemia now present Prolonged QT interval no longer present ST (T wave) deviation still present Electronically Signed On 06-26-20 22:29:55 BLIND CLEANER by Hamlet Brush
[2020-06-29] MEDS ORDERED: NA CHLORIDE 0.9% 500 ML ONE ×2 (08:11→13:41)
[2020-06-29] MEDS ORDERED: HEPARIN 5000 UNIT/ML 1 ML VIAL ONE (08:59)
[2020-06-29] MEDS ORDERED: METHYLPREDNISOLONE 125 MG INJ ONE (09:00)
[2020-06-29] MEDS ORDERED: FENTANYL CITR 100 MCG/2 ML ONE (09:00)
[2020-06-29] MEDS ORDERED: ATROPINE SULF 1 MG/10 ML SYR IV ONE (09:00)
[2020-06-29] MEDS ORDERED: MIDAZOLAM HCL 2 MG/2 ML INJ ONE ×2 (09:00→09:21)
[2020-06-29] MEDS ORDERED: CLOPIDOGREL 75 MG TABLET ONE (09:58)
--- NOTE | 2020-06-29 10:05 | OP ---
Surgeon: Hamlet Brush MD Floor Coverings Installer: Brenna Dumont. The patient will be at bedrest for 6 hours after hemostasis. She will go home today and I will see h er in the office in the next 2 weeks. The patient was admitted as an outpatient on 06/29/2020 for procedure. Procedure: Selective bilateral renal angiogram with an angioplasty and stent of the right renal shmuel ry. Indication: Hypertension uncontrolled with bilateral renal artery stenosis. Description Of Procedure: The patient was brought to the clay processing labourer today as an outpatient, prepped an d draped in the routine sterile fashion. Given Versed for sedation. She was given Solu-Medrol for i odine allergy. A left groin approach was taken after Xylocaine. We put a 6-Dutch sheath in the lef t common femoral artery successfully. Angiography there was normal. However, the sheath was right a t the profunda takeoff. We decided to do a pressure holding for hemostasis. The patient will be at bedrest for 6 hours after that. A renal guide was used to select the left renal artery. Angiography there showed about 30% stenosis only. We moved the catheter to the right renal and injection there showed an ostial 90% short renal artery stent on the right. 0.014 guidewire was used to cross the le ellis successfully. The lesion was pre-dilated with 3.0 x 12 [place] [employer] Emerge compliant ballo on at 11 atmospheres. Following that, we used an Rx Herculink Elite renal artery stent of 5 x 18 mm. There was 0% residual. The patient tolerated the procedure well. There were no complications. Estimated Blood Loss: 5 mL. Postoperative Diagnoses: Renal artery stenosis, status post successful right renal stent. The patie nt received 5000 of heparin during the procedure. Anesthesia: Total conscious sedation was 45 minutes. Plan: Continue medical therapy as is. LEONARDO/MODL Voice ID: [id number] Report ID: [id number]
[2020-06-29] MEDS ORDERED: HEPA 1000U/500MLS 1,000 UNIT/500 ML BAG IV ONE (11:56)
[2020-06-29 15:29] VITALS: TEMP 97.2
[2020-06-29 18:18] VITALS: BP 157/63; O2SAT 97
== END 2020-06-29 18:00 | disposition home or self-care (01) ==
LOC: CCL 07:14
DX: I70.1 Atherosclerosis of renal artery (principal); I70.213 Atherosclerosis of native arteries of extremities with intermittent claudication, bilateral legs; I65.21 Occlusion and stenosis of right carotid artery; E11.40 Type 2 diabetes mellitus with diabetic neuropathy, unspecified; I10 Essential (primary) hypertension; I51.7 Cardiomegaly; E78.5 Hyperlipidemia, unspecified; Z88.0 Allergy status to penicillin; Z88.2 Allergy status to sulfonamides; Z88.6 Allergy status to analgesic agent; Z91.041 Radiographic dye allergy status; Z20.822 Contact with and (suspected) exposure to COVID-19; Z82.49 Family history of ischemic heart disease and other diseases of the circulatory system
CPT/HCPCS: 93005; 85025; 80048; 36415; 85610; 82947; 85347 ×3; 85730; 71046; 37236; 36252; U0002; C1893; C1725; J1644 ×2; J2250 ×2; J3010; J7040 ×2; J2930

== ENCOUNTER 2020-06-29 22:00 | Observation (INO) | payer OTHER ==
[2020-06-29 23:13] LABS: Absolute Lymphocytes (CBC) 1.1 K/uL (0.7-4.9); Basophils % 0.1 % (0-1.3); Lymphocytes % 4.7 % (15.3-44.8); MPV 8.9 fL (7.6-11.3); RBC Red Blood Cell Count 3.61 M/uL (3.86-4.86)
[2020-06-29 23:31] LABS: Potassium 4.3 mmol/L (3.5-5.1)
--- NOTE | 2020-06-30 00:05 | ER ---
Nurse's Notes [facility] Name: Catherine Chahal Age: 79 yrs Sex: Female : 1940 Arrival Date: 06/29/2020 Time: 22:01 Bed 7 Private MD: Diagnosis: Hematoma left groin. S/P Cardiac cath Presentation: 06/29 22:06 Chief complaint: EMS states: pt left this facility today around 1800 and was moving dm5 around and thinks that she pulled her stent, she is having a burning sensation in leg and abdomen rated at 9/10. Pt given IV Tylenol in route 100 mg. The placement was done through the left femoral artery. Coronavirus screen: Client denies travel out of the [place] in the last 14 days. At this time, the client does not indicate any symptoms associated with coronavirus-19. Ebola Screen: Patient negative for fever greater than or equal to 101.5 degrees Fahrenheit, and additional compatible Ebola Virus Disease symptoms Patient denies exposure to infectious person. Patient denies travel to an Ebola-affected area in the 21 days before illness onset. No symptoms or risks identified at this time. Initial Sepsis Screen: Does the patient meet any 2 criteria? No. Patient's initial sepsis screen is negative. Does the patient have a suspected source of infection? No. Patient's initial sepsis screen is negative. Risk Assessment: Do you want to hurt yourself or someone else? Patient reports no desire to harm self or others. Onset of symptoms was June 29, 2020. 22:06 Method Of Arrival: EMS: [facility] dm5 22:06 Acuity: NESTOR 3 dm5 Historical: - Allergies: 22:11 Codeine; dm5 22:11 Iodine; dm5 22:11 Sulfa (Sulfonamide Antibiotics); dm5 22:11 PENICILLINS; dm5 - Home Meds: 22:11 glyburide 5 mg Oral tab 1 tab once daily [Active]; simvastatin 40 mg Oral tab 1 tab dm5 once daily [Active]; clopidogrel 75 mg oral tab 1 tab once daily [Active]; losartan 100 mg oral tab 1 tab once daily [Active]; aspirin 81 mg oral TbEC once daily [Active]; - PMHx: 22:13 Hyperlipidemia; CAD; Diabetes; dm5 22:14 hypertension; dm5 - Immunization history:: Adult Immunizations unknown. - Social history:: Smoking status: unknown. Screenin:15 Abuse screen: Denies threats or abuse. Denies injuries from another. Nutritional rr5 screening: No deficits noted. Tuberculosis screening: No symptoms or risk factors identified. Fall Risk IV access (20 points). Total Han Fall Scale indicates No Risk (0-24 pts). Assessment: 22:30 General: Appears in no apparent distress. comfortable, Behavior is calm, cooperative, rr5 appropriate for age. 22:30 Pain: Complains of pain in left femoral area. Neuro: Level of Consciousness is awake, rr5 alert, obeys commands, Oriented to person, place, time, situation. Cardiovascular: Capillary refill < 3 seconds Patient's skin is warm and dry. Respiratory: Airway is patent Respiratory effort is even, unlabored, Respiratory pattern is regular, symmetrical. GI: No signs and/or symptoms were reported involving the gastrointestinal system. : No signs and/or symptoms were reported regarding the genitourinary system. EENT: No signs and/or symptoms were reported regarding the EENT system. Derm: Skin is intact, is healthy with good turgor, Skin temperature is warm Bruising that is dark purple, on left femoral area. Musculoskeletal: Capillary refill < 3 seconds, Reports pain in left femoral area. 23:30 Reassessment: Patient appears in no apparent distress at this time. Patient is alert, rr5 oriented x 3, equal unlabored respirations, skin warm/dry/pink. 06/30 00:35 Reassessment: patient refused for morphine and zofran medicine, she requested like a rr5 pill form. 00:50 Reassessment: Patient appears in no apparent distress at this time. Patient is alert, rr5 oriented x 3, equal unlabored respirations, skin warm/dry/pink. verbal order by dr velasco put 5 lbs weight on the post surgical site ( left femoral area). 02:00 Reassessment: Patient appears in no apparent distress at this time. Patient is alert, rr5 oriented x 3, equal unlabored respirations, skin warm/dry/pink. no complaints made for admission, changed to hospital bed. Vital Signs: 06/29 22:13 BP 144 / 71; Pulse 94; Resp 15; Temp 98.3(O); Pulse Ox 100% on R/A; oe 23:30 BP 151 / 95; Pulse 83; Resp 15; Pulse Ox 95% ; rr5 12 00:35 BP 156 / 80; Pulse 87; Resp 17; Pulse Ox 100% ; Pain 7/10; rr5 01:30 BP 135 / 85; Pulse 85; Resp 17; Pulse Ox 98% ; rr5 02:30 BP 141 / 65; Pulse 90; Resp 19; Pulse Ox 99% ; rr5 ED Course: 06/29 22:01 Patient arrived in ED. cl3 22:06 Arm band placed on. sg 22:09 Triage completed. dm5 22:24 Baron Zimmerman, RN is Primary Nurse. rr5 22:26 Patient's daughter Chico Ramirez [phone]. mw2 22:30 Maintain EMS IV. Dressing intact. Good blood return noted. Site clean \T\ dry. Gauge \T\ rr 5 site: G20 right AC. 22:31 Darrion Velasco MD is Attending Physician. pkl 22:35 Patient has correct armband on for positive identification. Placed in gown. Bed in low rr5 position. Call light in reach. Side rails up X2. communications manager on. Pulse ox on. NIBP on. 23:15 Extremity Nonvascular Complete In Process Unspecified. EDMS 06/30 00:01 Minor Ribera MD is Hospitalizing Provider. pkl 03:00 No provider procedures requiring assistance completed. Patient admitted, IV remains in rr5 place. intact, No redness/swelling at site. 07:05 Primary Nurse role handed off by Baron Zimmerman RN bd 07:14 Vaibhav Lombardi, RN is Primary Nurse. em 20:38 Primary Nurse role handed off by Vaibhav Lombardi, RN mw2 Administered Medications: 00:36 Drug: [place] 5 mg-325 mg 1 tabs {Note: rass 0.} Route: PO; rr5 01:35 Follow up: Response: No adverse reaction; Pain is decreased; RASS: Alert and Calm (0) rr5 Outcome: 00:04 Decision to Hospitalize by Provider. pkl 03:00 Admitted to ER Hold. Please see [employer] for further documentation. rr5 03:00 Condition: stable 03:00 Instructed on the need for admit. 07/01 10:30 Patient left the ED. iw Signatures: Dispatcher [employer] EDDE Lashanda Fallon Deana, RN BRANDON dm5 Myron Rios, RN Darrion Adkins MD MD pkl Munoz, Edgar, RN RN em Williams, Irene, RN Tee Hinojosa MyKena mw2 Baron Zimmerman RN RN rr5 Morenita Guardado cl3 Corrections: (The following items were deleted from the chart) 06/29 22:12 22:06 Chief complaint: EMS states: pt left this facility today around 1800 and was dm5 moving around and thinks that she pulled her stint, she is having a burning sensation in leg and abdomen rated at 9/10. Pt given IV Tylenol in route 100 mg. dm5
--- NOTE | 2020-06-30 00:06 | EDPHYS ---
Physician Documentation [facility] Name: Catherine Chahal Age: 79 yrs Sex: Female : 1940 Arrival Date: 06/29/2020 Time: 22:01 Bed 7 Private MD: ED Physician Darrion Rivero HPI: 06/29 23:07 This 79 yrs old Female presents to ER via EMS with complaints of Leg Pain. pkl 23:07 The patient presents with pain, that is acute. The complaints affect the left groin. pkl Patient had cardiac cath earlier. Went home around 6 PM. Complained of pain and swelling left groin around 8 PM. Historical: - Allergies: 22:11 Codeine; dm5 22:11 Iodine; dm5 22:11 Sulfa (Sulfonamide Antibiotics); dm5 22:11 PENICILLINS; dm5 - Home Meds: 22:11 glyburide 5 mg Oral tab 1 tab once daily [Active]; simvastatin 40 mg Oral tab 1 tab dm5 once daily [Active]; clopidogrel 75 mg oral tab 1 tab once daily [Active]; losartan 100 mg oral tab 1 tab once daily [Active]; aspirin 81 mg oral TbEC once daily [Active]; - PMHx: 22:13 Hyperlipidemia; CAD; Diabetes; dm5 22:14 hypertension; dm5 - Immunization history:: Adult Immunizations unknown. - Social history:: Smoking status: unknown. ROS: 23:07 Eyes: Negative for injury, pain, redness, and discharge, ENT: Negative for injury, pkl pain, and discharge, Neck: Negative for injury, pain, and swelling, Cardiovascular: Negative for chest pain, palpitations, and edema, Respiratory: Negative for shortness of breath, cough, wheezing, and pleuritic chest pain. 23:07 Abdomen/GI: Positive for abdominal pain, of the right lower quadrant and left lower quadrant. 23:07 Back: Negative for acute changes. 23:07 : Negative for urinary symptoms. pkl 23:07 MS/extremity: Positive for pain, swelling, of the left groin. 23:07 Skin: Negative for rash. 23:07 Neuro: Negative for altered mental status. Exam: 23:19 Head/Face: Normocephalic, atraumatic. Eyes: Pupils equal round and reactive to light, pkl extra-ocular motions intact. Lids and lashes normal. Conjunctiva and sclera are non-icteric and not injected. Cornea within normal limits. Periorbital areas with no swelling, redness, or edema. ENT: Nares patent. No nasal discharge, no septal abnormalities noted. Tympanic membranes are normal and external auditory canals are clear. Oropharynx with no redness, swelling, or masses, exudates, or evidence of obstruction, uvula midline. Mucous membranes moist. Neck: Trachea midline, no thyromegaly or masses palpated, and no cervical lymphadenopathy. Supple, full range of motion without nuchal rigidity, or vertebral point tenderness. No Meningismus. Chest/axilla: Normal chest wall appearance and motion. Nontender with no deformity. No lesions are appreciated. Cardiovascular: Regular rate and rhythm with a normal S1 and S2. No gallops, murmurs, or rubs. Normal PMI, no JVD. No pulse deficits. Respiratory: Lungs have equal breath sounds bilaterally, clear to auscultation and percussion. No rales, rhonchi or wheezes noted. No increased work of breathing, no retractions or nasal flaring. 23:19 Abdomen/GI: Bowel sounds: normal, Palpation: abdomen is soft and non-tender, in all quadrants. 23:19 Back: Exam negative for acute changes. 23:19 : Exam negative for acute changes. 23:19 Musculoskeletal/extremity: Extremities: grossly normal except: noted in the left groin: ecchymosis, pain, swelling. 23:19 Skin: Exam negative for rash. Vital Signs: 22:13 BP 144 / 71; Pulse 94; Resp 15; Temp 98.3(O); Pulse Ox 100% on R/A; oe 23:30 BP 151 / 95; Pulse 83; Resp 15; Pulse Ox 95% ; rr5 12 00:35 BP 156 / 80; Pulse 87; Resp 17; Pulse Ox 100% ; Pain 7/10; rr5 01:30 BP 135 / 85; Pulse 85; Resp 17; Pulse Ox 98% ; rr5 02:30 BP 141 / 65; Pulse 90; Resp 19; Pulse Ox 99% ; rr5 MDM: 06/29 22:31 Patient medically screened. pkl 23:59 Data reviewed: vital signs, nurses notes, lab test result(s), radiologic studies, pkl ultrasound. ED course: Talked to Dr. Brush for observation ( Dr. Ribera ). 06/29 22:38 Order name: CBC with Diff; Complete Time: 20:15 pkl 06/29 22:38 Order name: Chem 7; Complete Time: 00:05 pkl 06/29 23:17 Order name: Manual Differential; Complete Time: 20:15 EDMS 06/30 02:33 Order name: SARS-COV-2 RT PCR; Complete Time: 20:15 EDMS 06/30 03:04 Order name: Basic Metabolic Panel EDMS 06/30 03:04 Order name: Basic Metabolic Panel EDMS 06/30 03:04 Order name: CBC with Automated Diff EDMS 06/30 03:04 Order name: CBC with Automated Diff EDMS 06/30 08:49 Order name: CBC with Manual Differential; Complete Time: 20:15 EDMS 06/30 09:08 Order name: Basic Metabolic Panel; Complete Time: 20:15 EDMS 06/30 11:27 Order name: Hematocrit; Complete Time: 20:15 EDMS 06/30 11:29 Order name: Protime (+INR); Complete Time: 20:15 EDMS 06/30 11:29 Order name: PTT, Activated Partial Thromb; Complete Time: 20:15 EDMS 06/29 22:38 Order name: Saline Lock; Complete Time: 00:37 pkl 06/29 22:52 Order name: Extremity Nonvascular Complete; Complete Time: 20:15 EDMS 06/30 03:04 Order name: CONS Physician Consult EDMS 06/30 03:04 Order name: Regular EDMS 06/30 11:17 Order name: Labs - recollect needed: recollect type and screen; Complete Time: 12:53 bd 06/30 12:01 Order name: Glucose, Ancillary Testing; Complete Time: 20:15 EDMS 06/30 13:56 Order name: Type and Screen; Complete Time: 20:15 EDMS 06/30 16:11 Order name: ABO/RH no charge; Complete Time: 20:15 EDMS 06/30 16:39 Order name: Glucose, Ancillary Testing; Complete Time: 20:15 EDMS 06/30 17:19 Order name: Hematocrit; Complete Time: 20:15 EDMS 06/30 22:58 Order name: Glucose, Ancillary Testing EDMS 07/01 05:29 Order name: Comprehensive Metabolic Panel EDMS 07/01 06:04 Order name: CBC with Automated Diff EDMS 07/01 07:47 Order name: Glucose, Ancillary Testing EDMS Administered Medications: 06/30 00:36 Drug: [place] 5 mg-325 mg 1 tabs {Note: rass 0.} Route: PO; rr5 01:35 Follow up: Response: No adverse reaction; Pain is decreased; RASS: Alert and Calm (0) rr5 Disposition: 06/30/20 00:04 Hospitalization ordered by Minor Ribera for Observation. Preliminary diagnosis is Hematoma left groin. S/P Cardiac cath. - Bed requested for [facility] ER HOLD. - Status is Observation. iw - Condition is Stable. - Problem is new. - Symptoms are unchanged. Signatures: Dispatcher [employer] EDSD Lashanda Fallon Deana, RN RN dm5 Darrion Rivero MD MD pkl Munoz, Edgar, RN RN em Blanca Bey RN BRANDON iw Krystyna Valdez RN BRANDON cg Ajay Bowen RN RN ja1 Baron Zimmerman RN RN rr5 Corrections: (The following items were deleted from the chart) 06/29 22:52 22:50 Pelvis Complete+US.RAD.BRZ ordered. EDSD EDSD 06/30 01:36 00:45 CORONAVIRUS+MR.LAB.BRZ ordered. [facility] EDSD 02:55 00:04 Hospitalization Ordered by Minor Ribera MD for Observation. Preliminary diagnosis cg is Hematoma left groin. S/P Cardiac cath. Bed requested for Telemetry/MedSurg (observation). Status is Observation. Condition is Stable. Problem is new. Symptoms are unchanged. pkl 18:45 02:55 06/30/2020 00:04 Hospitalization Ordered by Minor Ribera MD for Observation. bd Preliminary diagnosis is Hematoma left groin. S/P Cardiac cath. Bed requested for [facility] ER HOLD. Status is Observation. Condition is Stable. Problem is new. Symptoms are unchanged. cg 19:08 18:45 06/30/2020 00:04 Hospitalization Ordered by Minor Ribera MD for Observation. em Preliminary diagnosis is Hematoma left groin. S/P Cardiac cath. Bed requested for Telemetry/MedSurg (observation). Status is Observation. Condition is Stable. Problem is new. Symptoms are unchanged. bd 19:12 19:08 06/30/2020 00:04 Hospitalization Ordered by Minor Ribera MD for Observation. ja1 Preliminary diagnosis is Hematoma left groin. S/P Cardiac cath. Bed requested for [facility] ER HOLD. Status is Observation. Condition is Stable. Problem is new. Symptoms are unchanged. em 07/01 10:30 / 19:12 06/30/2020 00:04 Hospitalization Ordered by Minor Ribera MD for iw Observation. Preliminary diagnosis is Hematoma left groin. S/P Cardiac cath. Bed requested for [facility] ER HOLD. Status is Observation. Condition is Stable. Problem is new. Symptoms are unchanged. ja1
[2020-06-30] MEDS ORDERED: MORPHINE 2 MG/ML SYR ONE (00:18)
[2020-06-30] MEDS ORDERED: ONDANSETRON 4 MG/2 ML VIAL ONE (00:18)
[2020-06-30] MEDS ORDERED: HYDROCODONE/APAP 5/325 MG TAB ONE (00:22)
[2020-06-30 00:28] LABS: Blood Morphology Comment NOT SEEN (NOT SEEN); Platelet Estimate ADEQ
[2020-06-30] MEDS ORDERED: MORPHINE 2 MG/ML SYR IV PRN (02:57)
[2020-06-30] MEDS: NA CHLORIDE 0.9% 1,000 ML IV SCH ×2 (03:00→16:20)
[2020-06-30] MEDS ORDERED: NA CHLORIDE 0.9% 1,000 ML ONE (06:04)
--- NOTE | 2020-06-30 07:12 | CON ---
Date of Consultation: 06/30/[address] Ribera on 06/30/2020. I saw the patient on 06/30/2020. Reason For Consultation: Hematoma in the left groin after right renal stent yesterday. History Of Present Illness: Ms. Chahal is 79, has a history of diabetes, CAD, hypertension, dyslipidem ia, recently underwent the left SFA stent. She came back yesterday as an outpatient on 06/29/2020 an d underwent a right renal stent successfully via left groin approach. She went home after 6 hours of bedrest and comes back with acute pain in the left groin and hematoma that measured 6 cm by ultrasou nd. No retroperitoneal hematoma. White count was elevated secondary to IV Solu-Medrol. Her hemoglo bin was 11.1. The hematoma had growing. She was admitted for observation and pressure on the left g roin. Allergies: SHE IS ALLERGIC TO CODEINE, IODINE, SULFA, AND PENICILLIN. Review of Systems: Negative. Social History: Negative. Family History: Negative. Medications: At home include aspirin, Plavix, Zocor, glyburide, and losartan. Physical Examination: Vital Signs: Stable, afebrile. HEENT: Negative. Neck: Supple. No bruit. Chest: Clear. Cardiac: Revealed a regular rhythm and rate. No murmurs, gallops, or rubs. Abdomen: Benign. Extremities: Revealed hematoma in the left groin with good distal pulses. Impression And Plan: 1.Left groin hematoma. We will observe no retroperitoneal hematoma. Hemoglobin is stable. She can probably go home today. 2.Elevated white count secondary to IV Solu-Medrol earlier today. 3.Diabetes, well controlled. 4.Coronary artery disease. 5.Hypertension. 6.Dyslipidemia. 7.Peripheral arterial disease, status post left SFA stent as well as right renal stent. We will continue her present regimen at home. I will see her in the office in 2 weeks. LEONARDO/CLIF Voice ID: [id number] Report ID: [id number]
[2020-06-30] MEDS ORDERED: PNEUMOCOCCAL VACCINE 0.5 ML IMVAC ONE (08:00)
--- NOTE | 2020-06-30 08:15 | RAD REPORT ---
EXAM DESCRIPTION: US - Extremity Nonvascular Complete - 06/29/2020 11:14 pm CLINICAL HISTORY: ABD PAIN COMPARISON: Extremity Nonvascular Complete dated 06/17/2020 TECHNIQUE: Sonographic evaluation was performed of the left groin. Patient recently had vascular acc ess and vascular procedure performed. FINDINGS: In the left groin area of bruising, a 7 x 6 x 3 centimeter heterogeneous hypoechoic mass i s present oval in shape. This is typical appearance for hematoma. Doppler evaluation does not demonst rate findings that would indicate pseudoaneurysm. IMPRESSION: Large 7 centimeter left groin region hematoma.
[2020-06-30 08:47] LABS: Absolute Lymphocytes (CBC) 1.1 K/uL (0.7-4.9); Basophils % 0.3 % (0-1.3); Hematocrit 29.9 % (36.0-45.0); Lymphocytes % 6.4 % (15.3-44.8); MPV 8.8 fL (7.6-11.3); RBC Red Blood Cell Count 3.15 M/uL (3.86-4.86)
[2020-06-30 09:07] LABS: Potassium 4.1 mmol/L (3.5-5.1)
[2020-06-30] MEDS ORDERED: GLUCAGON 1 MG/VIAL IM PRN (09:50)
[2020-06-30] MEDS ORDERED: D50W 25 GM/50 ML SYRINGE IV PRN (09:50)
[2020-06-30 10:08] LABS: Blood Morphology Comment NOT SEEN (NOT SEEN); Platelet Estimate ADEQ
--- NOTE | 2020-06-30 10:19 | P.HP ---
Certification for Inpatient Patient admitted to: Inpatient With expected LOS: >2 Midnights Patient will require the following post-hospital care: None Practitioner: I am a practitioner with admitting privileges, knowledge of patient current condition, hospital course, and medical plan of care. Services: Services provided to patient in accordance with Admission requirements found in Title 42 Section 412.3 of the Code of Federal Regulations Patient History Date of Service: 06/30/20 Primary Care Provider: Sajan Nayak Reason for admission: acute anemia with hematoma History of Present Illness: Patient is an office patient of Mrs Nayak. She has a History of dm2, difficult to control htn and allergies. She was taken to the biological lab technician yesterday by Dr. Brush. 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 The patient went home. However she developed a hematoma on the left side, this is the side they made the approach. The patient came to the ER. She had an elevated wbc(did recieve steroids during the procedure for her iodine allergy). She was put in observation to make sure there was no worsening of her hb. She had dropped from 12 to 11 approx. Unfortunately she continues to drop this morning to 9.4 Allergies codeine [Codeine] Allergy (Mild, Verified 06/05/20 13:07) Itching/Hives/Rash iodine Allergy (Mild, Verified 06/05/20 13:07) Itching/Hives/Rash Sulfa (Sulfonamide Antibiotics) Allergy (Mild, Verified 06/05/20 13:07) Hives/Rash codeine sulfate Allergy (Uncoded 06/05/20 13:07) Unknown Home Medications: Losartan Potassium 100 mg PO DAILY 06/16/20 Montelukast Sodium 10 mg PO DAILY 06/16/20 - Past Medical/Surgical History Diabetic: Yes -: DM -: HTN -: cholecystectomy -: tonsillectomy -: hysterectomy -: cataract sx and lens implant -: hermes bening tumor removal (fibroids) -: colonoscopy, removed 3 polyps - Family History Father -: Hypertension, Diabetes, Cancer Sister -: Diabetes, Stroke Notes: lupus Mother -: Diabetes - Social History Smoking Status: Unknown if ever smoked Alcohol use: No CD- Drugs: No Caffeine use: Yes Review of Systems 10-point ROS is otherwise unremarkable Genitourinary: Other (Pain and swelling in the left and right groin ) Physical Examination - Vital Signs Temperature: 97.6 F Blood Pressure: 126/59 Pulse: 98 Respirations: 18 Pulse Ox (%): 100 - Physical Exam General: Alert, In no apparent distress HEENT: Atraumatic, PERRLA, Mucous membr. moist/pink, EOMI, Sclerae nonicteric Neck: Supple, 2+ carotid pulse no bruit, No LAD, Without JVD or thyroid abnormality Respiratory: Clear to auscultation bilaterally, Normal air movement Cardiovascular: Regular rate/rhythm, Normal S1 S2 Gastrointestinal: Normal bowel sounds, No tenderness Musculoskeletal: No tenderness Integumentary: No rashes Neurological: Normal gait, Normal speech, Normal strength at 5/5 x4 extr, Normal tone, Normal affect Lymphatics: No axilla or inguinal lymphadenopathy External genitalia: Edema, Tenderness, Other (hematoma) - Studies Laboratory Data (last 24 hrs) 06/29/20 23:00: Sodium 137, Potassium 4.3, BUN 21 H, Creatinine 1.20, Glucose 350 H 06/29/20 23:00: WBC 22.7 H* D, Hgb 11.4 L, Hct 34.0 L, Plt Count 304 Assessment and Plan - Problems (Diagnosis) (1) Hematoma Current Visit: Yes Status: Acute Plan: Will monitor serial hct. If she continues to fall will order a CT Scan. Check coagulation labs as well. (2) Acute anemia Current Visit: Yes Status: Acute Plan: Will type and screen 2 units. Will follow serial HCT. Will Transfuse if she continues to fall. May need plasma if coagulopathy. (3) Diabetes 1.5, managed as type 2 Current Visit: Yes Status: Chronic Plan: managed as an outpatient on metformin. Will continue sliding scale insulin and accuchecks. (4) HTN (hypertension) Current Visit: Yes Status: Acute Plan: restart losartan and spirnolactone. She has been in the 170-180 sbp. The patient will hopefully improve with the correction of the right renal artery stenosis. Qualifiers: Hypertension type: essential hypertension Qualified Code(s): I10 - Essential (primary) hypertension Discharge Plan: Home Plan to discharge in: 24 Hours - Advance Directives Does patient have a Living Will: No Does patient have a Durable POA for Healthcare: No - Code Status/Comfort Care Code Status Assessed: No Physician Review: Patient Assessed, Agree with Above Assessment and Plan Critical Care: No Time Spent Managing Pts Care (In Minutes): 45
[2020-06-30 11:28] LABS: Protime INR 0.95
[2020-06-30] MEDS: INSULIN -REGULAR HUMAN 50 UNIT/0.5 ML ML SQ SCH ×3 (11:30→22:52)
[2020-06-30] MEDS ORDERED: INSULIN -REGULAR HUMAN 50 UNIT/0.5 ML ML ONE ×2 (12:46→23:06)
[2020-06-30] MEDS ORDERED: D50W 25 GM/50 ML VIAL IV PRN (14:34)
[2020-06-30] MEDS ORDERED: METFORMIN HCL 500 MG TAB PO SCH (17:00)
[2020-07-01 05:20] LABS: Absolute Lymphocytes (CBC) 2.2 K/uL (0.7-4.9); Hematocrit 28.5 % (36.0-45.0); Lymphocytes % 21.8 % (15.3-44.8); RBC Red Blood Cell Count 2.99 M/uL (3.86-4.86)
[2020-07-01 05:29] LABS: Bilirubin Total 0.2 mg/dL (0.2-1.0)
[2020-07-01 06:48] VITALS: TEMP 98.6
[2020-07-01 06:49] VITALS: BMI 27.6
[2020-07-01] MEDS: NA CHLORIDE 0.9% 1,000 ML IV SCH (06:49)
[2020-07-01] MEDS: INSULIN -REGULAR HUMAN 50 UNIT/0.5 ML ML SQ SCH (07:30)
[2020-07-01] MEDS ORDERED: MONTELUKAST 10 MG TAB PO SCH (09:00)
[2020-07-01] MEDS ORDERED: SPIRONOLACTONE 25 MG TABLET PO SCH (09:00)
[2020-07-01] MEDS ORDERED: LOSARTAN POTASSIUM 50 MG TABLET PO SCH (09:00)
[2020-07-01 09:08] VITALS: BP 128/52
--- NOTE | 2020-07-01 09:08 | P.DS ---
Admission Date: 06/30/20 Discharge Date: 07/01/20 Primary Care Provider: Sajan Nayak Disposition: ROUTINE DISCHARGE Discharge Condition: GOOD Reason for Admission: acute anemia with hematoma - Problems (1) Hematoma Current Visit: Yes Status: Acute (2) Acute anemia Current Visit: Yes Status: Acute (3) Diabetes 1.5, managed as type 2 Current Visit: Yes Status: Chronic (4) HTN (hypertension) Current Visit: Yes Status: Acute Qualifiers: Hypertension type: essential hypertension Qualified Code(s): I10 - Essential (primary) hypertension Brief History of Present Illness: Patient is an office patient of Mrs Nayak. She has a History of dm2, difficult to control htn and allergies. She was taken to the parking lot laborer yesterday by Dr. Brush. 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 The patient went home. However she developed a hematoma on the left side, this is the side they made the approach. The patient came to the ER. She had an elevated wbc(did recieve steroids during the procedure for her iodine allergy). She was put in observation to make sure there was no worsening of her hb. She had dropped from 12 to 11 approx. Unfortunately she continues to drop this morning to 9.4 Hospital Course: Patient came in with expanding hematoma. She had a angiogram done on Monday, with Dr. Brush She came with expanding hematoma and pain. The patient had a drop in her hemoglobin of 1 gm. She dropped one since an admission. She stablized at 9.5 She is clinically stable. The patient can follow up with Dr. Brush and Mrs Nayak in a week Vital Signs/Physical Exam: Temp Pulse Resp BP Pulse Ox 98.6 F 79 17 124/57 L 97 07/01/20 06:00 07/01/20 06:00 07/01/20 06:00 07/01/20 06:00 07/01/20 02:00 General: Alert, In no apparent distress HEENT: Atraumatic, PERRLA, EOMI Neck: Supple, JVD not distended Respiratory: Clear to auscultation bilaterally, Normal air movement Cardiovascular: Regular rate/rhythm, Normal S1 S2 Gastrointestinal: Normal bowel sounds, No tenderness Musculoskeletal: No tenderness Integumentary: No rashes Neurological: Normal speech, Normal tone, Normal affect Lymphatics: No axilla or inguinal lymphadenopathy Laboratory Data at Discharge: WBC 9.9 K/uL (4.3-10.9) D 07/01/20 04:50 Hgb 9.5 g/dL (12.0-15.0) L 07/01/20 04:50 Hct 28.5 % (36.0-45.0) L 07/01/20 04:50 Plt Count 242 K/uL (152-406) 07/01/20 04:50 PT 11.2 SECONDS (9.5-12.5) 06/30/20 11:04 INR 0.95 06/30/20 11:04 APTT 18.3 SECONDS (24.3-36.9) L 06/30/20 11:04 Sodium Cancelled 07/01/20 05:00 Potassium Cancelled 07/01/20 05:00 BUN Cancelled 07/01/20 05:00 Creatinine Cancelled 07/01/20 05:00 Glucose Cancelled 07/01/20 05:00 Total Bilirubin 0.2 mg/dL (0.2-1.0) 07/01/20 04:50 AST 5 U/L (15-37) L 07/01/20 04:50 ALT 11 U/L (12-78) L 07/01/20 04:50 Alkaline Phosphatase 59 U/L (45-117) 07/01/20 04:50 Home Medications: Losartan Potassium 100 mg PO DAILY 06/16/20 Montelukast Sodium 10 mg PO DAILY 06/16/20 Acetaminophen 500 mg PO TID #30 tablet 07/01/20 New Medications: Acetaminophen 500 mg PO TID #30 tablet Diet: ADA Activity: Ad mirtha Followup: Hamlet Brush MD [ACTIVE - CAN ADMIT] - 1 Week Flora Nayak FNP [facility] [ALLIED HEALTH PROFESSIONAL] - 1 Week Time spent managing pt's care (in minutes): 30
[2020-07-01 11:08] VITALS: O2SAT 98
== END 2020-07-01 11:19 | disposition home or self-care (01) ==
LOC: ER 22:00 → ERHOLD 06-30 03:10 → INTOOBSV 06-30 09:30 → OBSVTOIN 06-30 09:30 → ERHOLD 06-30 18:06
PROVIDERS: ADMIT Internal Medicine; ATTEND Internal Medicine
DX: L76.32 Postprocedural hematoma of skin and subcutaneous tissue following other procedure (principal); D64.9 Anemia, unspecified; E11.9 Type 2 diabetes mellitus without complications; I10 Essential (primary) hypertension; Z79.84 Long term (current) use of oral hypoglycemic drugs; Z20.822 Contact with and (suspected) exposure to COVID-19; I25.10 Atherosclerotic heart disease of native coronary artery without angina pectoris; E78.5 Hyperlipidemia, unspecified; Z95.820 Peripheral vascular angioplasty status with implants and grafts; D72.829 Elevated white blood cell count, unspecified; T38.0X5A Adverse effect of glucocorticoids and synthetic analogues, initial encounter
CPT/HCPCS: 36415; 76881; 80048; 80053; 82947; 85014; 85025; 85610; 85730; 86850; 86900; 86901; 99285; G0378; J2270; J2405; J7030; U0003